=== PATIENT | male | born 1950 | race Caucasian/White ===

== ENCOUNTER → 2020-08-22 | Outpatient (CLI) | payer MEDICARE ==
--- NOTE | 2020-08-22 11:45 | NM ---
EXAMINATION TYPE: NM stress cardiolite complete DATE OF EXAM: 08/22/2020 COMPARISON: Prior nuclear medicine study October 03, 2008. HISTORY: Chest pain and abnormal EKG. History of tobacco use in the past along with prior heart meche terization. TECHNIQUE: After the intravenous administration of 9.28 mCi Tc 99m Sestamibi - Rest images obtained 45 minutes post injection. The patient exercised using a CELIA protocol and 1 minute prior to peak exercise was injected with 25.7 mCi Tc 99m Sestamibi - Stress images obtained 15 minutes post injecti on. FINDINGS: Targeted heart rate was achieved during performance of the study. Review of stress and rest SPECT carmen ges demonstrates no distinct perfusion abnormality. Poor uptake in the septum could reflect artifact versus product of old infarct. Gated analysis shows normal wall motion with an estimated left ventri cular ejection fraction of 58 %. IMPRESSION: No scintigraphic evidence for reversible ischemia
--- NOTE | 2020-08-22 18:02 | P.STRESS ---
- Stress Test Note Stress Test Results/Findings: Exam Performed: NM stress cardiolite complete Exam Date: 08/22/20 Reason for Exam: CHEST PAIN /ABN EKG Height: 5 ft 8 in Weight: 77.111 kg Protocol: CELIA Stage: 2 Duration of Exercise: 5:00 Resting Heart Rate: 89 Resting Blood Pressure: 123/75 Maximum Achieved Heart Rate: 135 Maximum Achieved Blood Pressure: 149/73 85% PMHR: 127 100% PMHR: 149 METS: 7.0 Technologist Comment: Stress Test Results/Findings: Patient underwent exercise stress EKG with a Celia protocol Cardiolite stress test. Patient exercised into Stage 2 for a total of 5 minutes reaching a total of 7.0 METS. Patient's maximum heart rate was 135 which represented 90 % age- predicted maximum heart rate. Stress EKG findings: At baseline patient's EKG showed sinus rhythm, normal axis, right bundle branch block. At peak exercise, EKG showed and no significant change from baseline.. Conclusions: 1. Normal EKG response to exercise without evidence of inducible ischemia. 2. Fair exercise capacity. 3. Cardiolite nuclear portion to be reported separately.
== END | disposition home or self-care (01) ==
LOC: RADNMMAIN 07:36
PROVIDERS: ATTEND Internal Medicine
DX: R07.9 Chest pain, unspecified (principal); R94.31 Abnormal electrocardiogram [ECG] [EKG]
CPT/HCPCS: 93017; 78452; A9500

== ENCOUNTER → 2022-08-11 | Outpatient (CLI) | payer MEDICARE ==
--- NOTE | 2022-08-11 11:15 | MR ---
MRI brain wo contrast HISTORY: TIA COMPARISON: None. TECHNIQUE: Multiecho multiplanar images the brain were obtained without contrast. FINDINGS: The T1-weighted sagittal images midline structures including the craniovertebral junction relationshi ps are normal. The ventricles, basal cisterns and sulci over the convexities are mildly prominent but appropriate fo r the patient's age. There is mild focal abnormal increased signal intensity in the deep periventricular white matter both cerebral hemispheres consistent with chronic white matter demyelination. 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 Based on diffusion-weighted imaging, there is no diffusion restriction or acute ischemic event. BMB the intraorbital contents appear normal and symmetric. Visualized paranasal sinuses and mastoid air cells are well aerated. IMPRESSION: 1. No mass, mass effect or acute ischemic event. 2. 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 3. Mild to moderate age-appropriate atrophy. 4. Mild chronic ischemic white matter demyelination
== END | disposition home or self-care (01) ==
LOC: RADMRIMAIN 10:15
PROVIDERS: ATTEND Psychiatry & Neurology Neurology
DX: I67.82 Cerebral ischemia (principal); G31.9 Degenerative disease of nervous system, unspecified; Z86.73 Personal history of transient ischemic attack (TIA), and cerebral infarction without residual deficits
CPT/HCPCS: 70551

== ENCOUNTER → 2023-08-21 | Outpatient (CLI) | payer MEDICARE ==
--- NOTE | 2023-08-21 12:33 | US ---
EXAMINATION TYPE: US venous doppler duplex LE LT DATE OF EXAM: 08/21/2023 12:18 PM COMPARISON: NONE CLINICAL INDICATION: Male, 73 years old with history of M79.605 PAIN IN LEFT LEG; Pt states left knee pain SIDE PERFORMED: Left TECHNIQUE: The lower extremity deep venous system is examined utilizing real time linear array sonog albertina with graded compression, doppler sonography and color-flow sonography. VESSELS IMAGED: Common Femoral Vein Deep Femoral Vein Greater Saphenous Vein * Femoral Vein Popliteal Vein Small Saphenous Vein * Proximal Calf Veins (* superficial vessels) Left Leg: Negative for DVT IMPRESSION: Grayscale, color doppler, spectral doppler imaging performed of the deep veins of the lo wer extremities. There is normal flow, compressibility, vascular waveforms.
== END | disposition home or self-care (01) ==
LOC: RADUSWWP 11:46
PROVIDERS: ATTEND Internal Medicine
DX: M79.605 Pain in left leg (principal)